=== PATIENT | male | born 1985 | race Caucasian/White ===

== ENCOUNTER 2018-01-19 10:58 | Emergency (ER) | payer MEDICAID ==
[~2018-01-19] VITALS: Ht 193 cm; Wt 81.8 kg
[2018-01-19] MEDS ORDERED: LIDOCAINE HCL 1% 10 ML VIAL INJ ONE (12:15)
[2018-01-19] MEDS ORDERED: MUPIROCIN CALCIUM 2% 22 GM OINTMENT TP ONE (13:00)
[2018-01-19 13:55] VITALS: BP 118/73
== END 2018-01-19 14:13 | disposition home or self-care (01) ==
LOC: EMS 11:00
DX: L02.414 Cutaneous abscess of left upper limb (principal); F17.210 Nicotine dependence, cigarettes, uncomplicated; F11.90 Opioid use, unspecified, uncomplicated
CPT/HCPCS: 10060; 99284; 99406; J3490

== ENCOUNTER 2018-01-19 20:50 | Emergency (ER) | payer MEDICAID ==
[~2018-01-19] VITALS: Ht 190.5 cm; Wt 90.9 kg
[2018-01-19 20:54] VITALS: BP 159/81
== END 2018-01-19 21:13 | disposition left against medical advice (07) ==
LOC: EMS 20:51
DX: Z53.21 Procedure and treatment not carried out due to patient leaving prior to being seen by health care provider (principal)